=== PATIENT | female | born 1955 | race Caucasian/White ===

== ENCOUNTER 2019-01-10 18:37 | Emergency (ER) | payer MEDICARE ==
[~2019-01-10] VITALS: Ht 160 cm; Wt 70.5 kg
[2019-01-10 18:40] VITALS: BP 155/98
[2019-01-10] MEDS ORDERED: DULO20CA30 PO (18:50)
[2019-01-10] MEDS ORDERED: TRAM50TA4 PO (18:50)
[2019-01-10] MEDS ORDERED: CINA30 PO (18:50)
[2019-01-10] MEDS ORDERED: LEVO25TA9 PO (18:50)
[2019-01-10] MEDS ORDERED: FOLI1 PO (18:50)
[2019-01-10] MEDS ORDERED: METH2.5 PO (18:50)
[2019-01-10] MEDS ORDERED: LOSA50TA64 PO (18:50)
[2019-01-10] MEDS ORDERED: TRAZ-252 PO (18:50)
== END 2019-01-10 19:30 | disposition left against medical advice (07) ==
LOC: EMS 18:38
DX: R10.9 Unspecified abdominal pain (principal); Z53.21 Procedure and treatment not carried out due to patient leaving prior to being seen by health care provider